=== PATIENT | female | born 1960 | race Caucasian/White ===

== ENCOUNTER 2018-07-07 07:20 | Inpatient (IN) ==
[2018-07-07] MEDS ORDERED: CeFAZolin Syr 2,000MG/20 ML 2,000 MG/20 ML SYRINGE IVPB ONE (07:43)
[2018-07-07] MEDS ORDERED: Ringers Solution, Lactated 1,000 ML IVC SCH ×2 (07:45→12:20)
--- NOTE | 2018-07-07 08:01 | Anesthesia Evaluation PreOp ---
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: Other (Menierre's disease) Other Medical History: Other (obesity BMI=42.6) Anesthesia History: No Prior Anesthetic Complications, Past Anesthesia Alcohol Use: none Drug use: none Medications and Allergies Amlodipine Besylate 10 mg PO DAILY 11/17/17 [History] Biotin 1 mg PO DAILY 11/17/17 [History] Clindamycin [Cleocin] 150 mg PO Q6HR #10 capsule 11/17/17 [Rx] Cyanocobalamin (Vitamin B-12) [Vitamin B12] 1,000 mcg PO DAILY 11/17/17 [History] Cyclobenzaprine [Flexeril] 5 mg PO HS PRN 11/17/17 [History] Ibuprofen [Motrin] 600 mg PO Q8HR #20 tab 11/17/17 [Rx] Krill/Om-3/Dha/Epa/Phospho/Ast [Krill Oil 1,000 mg Softgel] 1 tab PO DAILY 11/17/17 [History] Lisinopril [Zestril] 40 mg PO DAILY 11/17/17 [History] OxyCODONE Immed Rel [Roxicodone 5 MG] 5 mg PO Q4HR PRN 5 Days #20 tablet 11/17/17 [Rx] hydroCHLOROthiazide [Hydrochlorothiazide] 12.5 mg PO DAILY PRN 11/17/17 [History] Allergy/AdvReac Type Severity Reaction Status Date / Time No Known Allergies Allergy Verified 11/15/17 10:11 - Meds/Allergy Pre-op Review Medications Reviewed: Yes Allergies Reviewed: Yes Beta Blockers on Current Med List: No Anesthesia Results - Labs Laboratory Tests 11/15/17 11/15/17 11/15/17 10:11 10:11 10:11 WBC 6.0 Hgb 13.4 Hct 40.9 Plt Count 345 PT 10.3 INR 1.0 APTT 38.5 H Sodium 141 Potassium 4.4 BUN 13 Creatinine 0.56 L - Imaging EKG: report reviewed (11/15/2017 SINUS RHYTHM BORDERLINE LEFT AXIS DEVIATION MINIMAL VOLTAGE CRITERIA FOR LVH, CONSIDER NORMAL VARIANT) Anesthesia Exam O2 Sat Height 1.65 m Height 1.65 m Weight 116.12 kg Weight 116.12 kg O2 Sat by Pulse Oximetry 96 Vital Signs Temp Pulse Resp BP Pulse Ox 97.7 F 85 18 127/66 96 07/07/18 07:41 07/07/18 07:41 07/07/18 07:41 07/07/18 07:41 07/07/18 07:41 Height: 5'5'' Weight: 256 lbs NPO (# of Hours): 8 Pain Scale: 0 Pain Scale Used: Numeric (1 - 10) - HEENT Pupil (Motor): EOMI Mallampati: III Teeth: Normal (chipped upper front tooth) Oral Opening: Greater than 3 - WIRE STITCHER OPERATOR LOC: Oriented WIRE STITCHER OPERATOR Motor: Normal RUE, Normal RLE, Normal LLE, Normal Face, Deficit LUE WIRE STITCHER OPERATOR Sensory: Normal: RUE, RLE, LLE, Face, Deficit: LUE (numbness left index finger) - Cardiac Rhythm: Regular Murmur: None - Pulmonary Breath Sounds: bilateral Clear Respiratory Effort: Symmetrical Anesthesia Assess/Plan ASA Score: 3 Level of consciousness: Cooperative, Oriented, Tranquil Anesthetic Plan: General, Regional Nerve Block Regional Nerve Block Plan: Supraclavicular Monitoring Plan: Standard Monitors Recovery Plan: PACU
[2018-07-07 08:25] LABS: Basophils # 0.1 K/mcL (0.0-0.2); Basophils % 1.4 %; Eosinophils # 0.3 K/mcL (0.0-0.6); Eosinophils % 4.9 %; Hematocrit 37.4 % (35.3-44.9); Hemoglobin 12.3 g/dL (11.5-15.4); Immature Granulocytes % 0.2 % (0-4); Lymphocytes # 2.8 K/mcL (0.6-4.6); Lymphocytes % 41.9 %; Mean Corpuscular HGB Conc 32.9 g/dL (31.6-35.5); Mean Platelet Volume 9.2 fL (9.4-12.4); Monocytes # 0.4 K/mcL (0.0-1.3); Monocytes % 6.4 %; Platelet Count 367 K/mcL (140-400); Red Cell Distribution Width 14.3 % (11.5-14.5); Segmented Neutrophils % 45.2 %
[2018-07-07 08:43] LABS: BUN/Creatinine Ratio 27 (6-26); Blood Urea Nitrogen 15 mg/dL (6-20); Calcium 9.2 mg/dL (8.6-10.3); Carbon Dioxide 24 mEq/L (23-29); Chloride 108 mEq/L (98-107); Glucose 103 mg/dL (70-105); Osmolality,Calculated 289 (280-300); Potassium 3.8 mEq/L (3.5-5.1); Sodium 139 mEq/L (136-145); eGFR For Non-African Americans > 60 (> 60)
--- NOTE | 2018-07-07 09:40 | History & Physical Report ---
Date of Encounter: 07/07/18 Time of Encounter: 09:39 24 Hour HP Update - Instructions Instructions: If the History and Physical is less than 30 days old and was completed prior to A.M. admission and or procedure and has NOT been updated on calendar day of procedure please complete this update prior to performing procedure. - Update Patient reports changes in Medical Condition: No Changes in examination, assessment, or condition: No Changes in Medication: No Surgery Remains Indicated: Yes Consent for Planned Operative Procedure(s) Verified: Yes - Pre-Operative Checklist Preoperative Checklist Indicated: No Prophylactic Antibiotic Ordered: Yes Is VTE Prophylaxis Indicated?: Yes
--- NOTE | 2018-07-07 09:41 | Discharge Summary ---
<Raji Verdugo - Last Filed: 07/07/18 09:40> Orders not resulted at time of discharge: Pending orders 07/07/18 08:26 US anesthesia pain block [US] Routine Date of Encounter: 07/07/18 - Discharge Diagnosis (1) Hypertension Priority: Secondary Status: Chronic Qualifiers: Hypertension type: unspecified Qualified Code(s): I10 - Essential (primary) hypertension (2) Obstructive sleep apnea Priority: Secondary Status: Chronic (3) Morbid obesity with BMI of 40.0-44.9, adult Priority: Secondary Status: Chronic (4) Rotator cuff tear arthropathy of left shoulder Priority: Primary Status: Chronic (5) Status post reverse total replacement of left shoulder Priority: Primary Status: Acute - Hospital Course Hospital course: Ms. Kahn is a 58 year old female - Time Spent with Patient Total time spent providing and/or coordinating discharge services: - Discharge Medications Home Medications: Amlodipine Besylate 10 mg PO DAILY 11/17/17 [History] Cyanocobalamin (Vitamin B-12) [Vitamin B12] 1,000 mcg PO DAILY 11/17/17 [History] Krill/Om-3/Dha/Epa/Phospho/Ast [Krill Oil 1,000 mg Softgel] 1 tab PO DAILY 11/17/17 [History] Lisinopril [Zestril] 40 mg PO DAILY 11/17/17 [History] Cetirizine HCl [Zyrtec] 10 mg PO DAILY 07/07/18 [History] OxyCODONE Immed Rel [Roxicodone 5 MG] 5 mg PO Q6HR PRN 5 Days #20 tablet 07/07/18 [Rx] Allergies/Adverse Reactions: Allergy/AdvReac Type Severity Reaction Status Date / Time No Known Allergies Allergy Verified 11/15/17 10:11 Primary care physician: Alfred Beauchamp CNP Labs on day of discharge: Labs from last 24 hours 07/07/18 07/07/18 07:44 07:44 WBC 6.6 RBC 4.40 Hgb 12.3 Hct 37.4 MCV 85.0 MCH 28.0 MCHC 32.9 RDW 14.3 Plt Count 367 MPV 9.2 L Immature Gran % 0.2 Seg Neutrophils % 45.2 Lymphocytes % 41.9 Monocytes % 6.4 Eosinophils % 4.9 Basophils % 1.4 Neutrophils # 3.0 Lymphocytes # 2.8 Monocytes # 0.4 Eosinophils # 0.3 Basophils # 0.1 Sodium 139 Potassium 3.8 Chloride 108 H Carbon Dioxide 24 BUN 15 Creatinine 0.56 L Est GFR ( Amer) > 60 Est GFR (Non-Af Amer) > 60 BUN/Creatinine Ratio 27 H Glucose 103 Calculated Osmolality 289 Calcium 9.2 - Patient Status Disposition: Home Health Service Condition: Good - Discharge Instructions Instructions: Oxycodone, Rapid Release (By mouth) Follow Up With: Alfred Beauchamp, [employer] [Primary Care Provider] - Additional Instructions: Opsite dressing, leave intact until first post-operative visit. Zipline/Karsten in place, plan to remove at post-operative day #14-16. If dressing becomes >50% saturated, contact office, remove dressing and place appropriate dressing in its place. Do not allow for dressing to get wet. Shoulder Precautions x 6 weeks. Apply cold therapy wrap 3-6x/day for 20 minutes at a time. Encourage ambulation throughout the day. Use Incentive spirometer 10x/hour. Elevate affected extremity above heart as tolerated. NWB to affected upper extremity x 6 weeks. Will remove brace at first post-operative appointment. OK to remove during PT/OT and Home exercises. <Ludy Ridley - Last Filed: 07/08/18 21:51> Orders not resulted at time of discharge: Pending orders 07/07/18 08:26 US anesthesia pain block [US] Routine Date of Encounter: 07/08/18 Time of Encounter: 21:45 - Discharge Diagnosis (1) Status post reverse total replacement of left shoulder Priority: Primary Status: Acute (2) Rotator cuff tear arthropathy of left shoulder Priority: Primary Status: Chronic (3) Hypertension Priority: Secondary Status: Chronic Qualifiers: Hypertension type: unspecified Qualified Code(s): I10 - Essential (primary) hypertension (4) Morbid obesity with BMI of 40.0-44.9, adult Priority: Secondary Status: Chronic (5) Obstructive sleep apnea Priority: Secondary Status: Chronic - Hospital Course Hospital course: Ms. Kahn is a 58 year old female status post left TSR reverse 07/07/18 with history of HTN, obesity, TITUS. She had an uneventful hospital course and was discharged day of surgery by Dr. Verdugo. I did not evaluate this patient but did review vitals at time of discharge which were stable. Stable for discharge home with home therapy to be set up. - Time Spent with Patient Total time spent providing and/or coordinating discharge services: Date of admission: 07/07/18 12:18 Primary care physician: Alfred Beauchamp CNP Consults: 07/07/18 12:20 Consult to Occupational Therapy [CONS] Routine Comment: post shoulder surgery Reason for Consult: post shoulder surgery Does patient have active BEDREST order?: No Is patient medically & hemodynamically stable?: Yes Consult to Physical Therapy [CONS] Routine Comment: post shoulder surgery Reason for Consult: post shoulder surgery Does patient have active BEDREST order?: No Is patient medically & hemodynamically stable?: Yes RT Post Op Consult [CONS] Routine Discharging clinician: Raji Verdugo Anticipated date of discharge: 07/07/18 - Impressions ITS Impressions Shoulder X-Ray 07/07/18 09:42 IMPRESSION: Expected postsurgical changes following left total reverse shoulder arthroplasty. D/ / Ayad Ervin / Ayad Ervin Interpreting Provider: Ayad Ervin - Patient Status Functional capacity at discharge: independent ambulation Overall status at discharge: patient is back to baseline - Diet and Activity Activity: as per physical therapy Diet: advance to your usual diet
[2018-07-07] MEDS ORDERED: *HR* Propofol 200 MG/20 ML VIAL IVP ONE (09:45)
[2018-07-07] MEDS ORDERED: *HR* Midazolam HCl 2 MG/2 ML VIAL ONE (09:45)
[2018-07-07] MEDS ORDERED: *HR* FentaNYL (PF) 100 MCG/2 ML VIAL ONE (09:45)
[2018-07-07] MEDS ORDERED: Lidocaine -MPF 2% 2 ML VIAL ONE (09:49)
[2018-07-07] MEDS ORDERED: Lidocaine -MPF 4% 5 ML AMPUL ONE (09:49)
[2018-07-07] MEDS ORDERED: Bupivacaine/Clonidine Syringe 1 EACH SYRINGE ONE (09:53)
[2018-07-07] MEDS ORDERED: ROPIVACAINE HCL/PF 0.5% 30 ML VIAL ONE (09:53)
[2018-07-07] MEDS ORDERED: Ethanol\\Acetic Acid\\Na Ace\\Ben 1,000 ML IRRIG.SOLN IR ONE (10:22)
[2018-07-07] MEDS ORDERED: *HR* Promethazine 25 MG/ML VIAL IVP PRN (10:26)
[2018-07-07] MEDS ORDERED: *HR* OxyCODONE Immed Rel 5 MG TABLET PO PRN ×2 (10:26→12:20)
[2018-07-07] MEDS ORDERED: Albuterol 2.5 MG/3 ML NEBULIZER IH ONE (10:26)
[2018-07-07] MEDS ORDERED: *HR* HYDROmorphone 2 MG TABLET PO PRN (10:26)
[2018-07-07] MEDS ORDERED: *HR* Labetalol 20 MG/4 ML SYRINGE IVP PRN (10:26)
--- NOTE | 2018-07-07 10:30 | Anesthesia Procedures ---
Addendum entered and electronically signed by Shon Beckwith CRNA 07/07/18 11:33: 8 mg decadron was added to ropivacaine Original Note: Date of Encounter: 07/07/18 Time of Encounter: 10:15 Procedures: Anesthesia - Nerve Block Procedure Date: 07/07/18 Time: 10:15 Surgical Procedure: total shoulder reverse ball Checklist: Correct Patient Identifier, Correct procedure, History checked Correct side: Left Blood Thinner: No Monitor Applied: EKG, BP, Pulse Oximetry Supplemental Oxygen via Nasal Cannula (L/min): 2 Sedation: Versed (mg): 2 Sedation: Fentanyl (mcg): 100 Indication: Post Op Analgesia Pre-op Neuro Deficits: No Block Type: Supraclavicular Sterile Technique: Yes Ultrasound used: Yes Anatomy identified: Yes Visual spread of Local: Yes Neuro Stimulation: No Blood on Needle Aspiration: No Smooth Injection of Local: Yes Pain with Injection of Local: No Prep: Chlorhexadine Needle: 22 x 50 mm Stimuplex Local: 0.25% Bupivicaine w/Clonidine 20 mcg/cc (for SCP, 10cc), Ropivacaine (0.5%) Volume (cc): 30cc Number of Attempts: 1 Complications: None/effective block Vitals: Vital Signs Time 1015 1020 BP 106/63 97/56 Pulse 81 87 Resp 16 16 O2 Sat 98 98
[2018-07-07] MEDS ORDERED: Tranexamic Acid 1,000 MG/10 ML VIAL ONE (10:49)
[2018-07-07] MEDS ORDERED: *HR* PHENYLEPHRINE 1,000 MCG/10 ML SYRINGE IVP ONE (10:53)
[2018-07-07] MEDS ORDERED: Ondansetron 4 MG/2 ML VIAL ONE (10:58)
[2018-07-07] MEDS ORDERED: Dexamethasone 4 MG/ML VIAL ONE (10:58)
[2018-07-07] MEDS ORDERED: EPHEDrine 50 MG/ML VIAL ONE (11:03)
[2018-07-07] MEDS ORDERED: Ketorolac 30 MG/ML VIAL ONE (11:18)
--- NOTE | 2018-07-07 11:36 | Orthopedic Operative Note ---
Date of procedure: 07/07/18 Pre-op diagnosis: left shoulder cuff tear arthropathy Post-op diagnosis: same Procedure: Procedure: Total Shoulder Replacment Reverse, left Estimated blood loss: 50 cc Hardware: Metal and polyethylene replacement: Arthrex 24, +2 , 25 screw glenoid baseplate, 4 locking 5.5 screw, 42+4 glenosphere, 7 apex humeral stem, poly insert 3 Exam Under anesthesia: Full motion no instability Procedural Notes: Irreparable tear supraspinatus tendon hemarthrosis Operative procedure: The patient was brought to the operating room and placed on the operating room table. After general anesthesia was administered the operative shoulder was examined. Findings were noted. The patient was placed in the modified beachchair position. All pressure points were padded appropriately. And the head was stabilized in the neutral position. The operative extremity was prepped and draped in the sterile surgical fashion. The patient received IV antibiotics prior to skin incision. A standard deltopectoral approach was made to the operative shoulder. Incision was made to the skin and subcutaneous tissue,hemo stasis was obtained with Bovie cautery. Using careful blunt dissection the cephalic vein was identified and mobilized medially. The deltopectoral interval was developed and the clavipectoral fascia was incised. The subscap was released off the lesser tuberosity and tagged with #2 FiberWire suture subscap was irreparable, patient noted to have a hemarthrosis. The humerus was dislocated patient noted to have irreparable tear supraspinatus tendon, and the humeral cut was made along the anatomic neck. Anterior and posterior Bankart retractors were placed to expose the glenoid. The glenoid guide was seated and the centering hole was made. It was reamed with the appropriate reamer. The 24, +2, 25 mm screw, baseplate was seated and secured with 4 locking 5.5 screw. The baseplate was irrigated and dried and the 42+4 Glenosphere was seated and secured with the Chung taper. The Chung taper was tested and found to be secure, glenosphere fixation was secondarily secured with the central screw. The humerus was redislocated and prepared with the diaphyseal reamers, followed by a broaching process up to the appropriate size 7 apex in the patient's anatomic version. The metaphyseal reamer was then utilized. Trial reduction found the shoulder to be relocatable. Trial components were removed and 7 apex stem was impacted in place in the patient's anatomic version. Trial reduction found the shoulder to be relocatable and stable with the appropriate 3 Trial component was removed and the real implant was seated and secured the shoulder was reduced. The shoulder had excellent motion and excellent stability and no evidence of dislocation. The deep tissue was irrigated with pulse irrigation. The deltopectoral interval was closed with a running #1 PDS suture, subcutaneous tissue was irrigated and closed with 0 PDS suture, the skin was closed with Dermabond. The patient was placed in a sterile dressing, abduction brace and extubated. The patient was then transferred to the recovery room in stable condition. Anesthesia: GETA Surgeon: Raji Verdugo Was there an front office medical assistant present: No Estimated blood loss (cc): 50 Condition: stable Disposition: PACU
[2018-07-07 12:11] LABS: Hematocrit 33.8 % (35.3-44.9); Hemoglobin 11.1 g/dL (11.5-15.4)
[2018-07-07] MEDS ORDERED: Ondansetron 4 MG/2 ML VIAL IVP PRN (12:20)
[2018-07-07] MEDS ORDERED: Naloxone 0.4 MG/ML INJ IVP PRN (12:20)
[2018-07-07] MEDS ORDERED: Temazepam 15 MG CAPSULE PO PRN (12:20)
[2018-07-07] MEDS ORDERED: *HR* OxyCODONE/APAP 5/325 TABLET PO PRN (12:20)
[2018-07-07] MEDS ORDERED: traMADol 50 MG TABLET PO PRN (12:20)
[2018-07-07] MEDS ORDERED: MOM Conc 10 ML UD.LIQ PO PRN (12:20)
[2018-07-07] MEDS ORDERED: Sennosides 8.6 MG TABLET PO PRN (12:20)
--- NOTE | 2018-07-07 12:22 | Anesthesia Evaluation Post Op ---
Date of Encounter: 07/07/18 Time of Encounter: 12:21 - Vital Signs Vital Signs: Vital Signs/O2 Sat, Most Current Temp Pulse Resp BP Pulse Ox 98.0 F 89 18 93/55 94 07/07/18 12:14 07/07/18 12:14 07/07/18 12:14 07/07/18 12:14 07/07/18 12:14 - Lungs Lungs: Clear Ascult./Percussion - Airway Airway: Non-obstructed - Cardiovascular Regular Rate - Mental Status Mental Status: Alert & Oriented, Answers Appropriately - Pain Pain Scale: 0 Pain Scale used: Numeric (1 - 10) - Nausea Vomiting Nausea Vomiting: Not Present - Hydration Hydration: Ice chips, Has not voided - Discharge PostOp Status: Transfer Patient to floor
[2018-07-07] MEDS ORDERED: *HR* Enoxaparin 30 MG/0.3 ML SYRINGE SQ SCH ×2 (16:00→18:00)
[2018-07-07 16:59] VITALS: BP 115/72
--- NOTE | 2018-07-07 22:30 | Physician Discharge Referral ---
Home Health/Hosp Referral Info Transfer to: Home Health Attending Provider: Kartik - Diagnosis (1) Status post reverse total replacement of left shoulder Priority: Primary Status: Acute (2) Rotator cuff tear arthropathy of left shoulder Priority: Primary Status: Chronic (3) Hypertension Priority: Secondary Status: Chronic (4) Morbid obesity with BMI of 40.0-44.9, adult Priority: Secondary Status: Chronic (5) Obstructive sleep apnea Priority: Secondary Status: Chronic - Respiratory Orders None Smoking Cessation: Smoking cessation has been advised. For more information, call the [place] Tobacco Quit Line at 5-514-PIZT-NOW. - Diet/Nutrition Diet/Nutrition Orders: Regular - Activity Activity Orders: Up ad darian, Ambulate - Services Needed Following services are medically necessary services: Nursing, Home Health Aide, Physical Therapy, Occupational Therapy Other Treatments: Opsite dressing, leave intact until first post-operative visit. Zipline/Karsten in place, plan to remove at post-operative day #14-16. If dressing becomes >50% saturated, contact office, remove dressing and place appropriate dressing in its place. Do not allow for dressing to get wet. Shoulder Precautions x 6 weeks. Apply cold therapy wrap 3-6x/day for 20 minutes at a time. Encourage ambulation throughout the day. Use Incentive spirometer 10x/hour. Elevate affected extremity above heart as tolerated. NWB to affected upper extremity x 6 weeks. Will remove brace at first post-operative appointment. OK to remove during PT/OT and Home exercises. - Transfer Medications Home Medications: Amlodipine Besylate 10 mg PO DAILY 11/17/17 [History] Cyanocobalamin (Vitamin B-12) [Vitamin B12] 1,000 mcg PO DAILY 11/17/17 [History] Krill/Om-3/Dha/Epa/Phospho/Ast [Krill Oil 1,000 mg Softgel] 1 tab PO DAILY 11/17/17 [History] Lisinopril [Zestril] 40 mg PO DAILY 11/17/17 [History] Cetirizine HCl [Zyrtec] 10 mg PO DAILY 07/07/18 [History] OxyCODONE Immed Rel [Roxicodone 5 MG] 5 mg PO Q6HR PRN 5 Days #20 tablet 07/07/18 [Rx] Allergies/Adverse Reactions: Allergy/AdvReac Type Severity Reaction Status Date / Time No Known Allergies Allergy Verified 11/15/17 10:11 Certification: Further, I certify that my clinical findings support that this patient is homebound (i.e. absences from home require considerable and taxing effort and are for medical reasons or mormonism services or infrequently or short duration when for other reasons) because: Homebound Reason: Post-surgery restriction and or conditions limit ability to leave home Attestation: My signature below is to certify that this patient is under my care and that I, or nurse practitioner, or a physician anesthesia assistant working with me, has a [id number] encounter with this patient.
[2018-07-08] MEDS ORDERED: Lisinopril 20 MG TABLET PO SCH (09:00)
[2018-07-08] MEDS ORDERED: Cyanocobalamin (B-12) 1,000 MCG TABLET PO SCH (09:00)
[2018-07-08] MEDS ORDERED: Loratadine 10 MG TABLET PO SCH (09:00)
[2018-07-08] MEDS ORDERED: amLODIPine 5 MG TABLET PO SCH (09:00)
[2018-07-08] MEDS ORDERED: (Krill/Om-3/Dha/Epa/Phospho/Ast [Krill Oil 1,000 Mg S) PO SCH (09:00)
== END 2018-07-07 16:50 | disposition home health service (06) | DRG 483 ==
LOC: SAMDAY 07:20 → 3NENU 12:18
PROVIDERS: ADMIT Orthopaedic Surgery; ATTEND Orthopaedic Surgery